=== PATIENT | male | born 1955 | race Caucasian/White ===

== ENCOUNTER → 2017-06-23 | Outpatient (CLI) | payer OTHER ==
[~2017-06-23] MED LIST: ADVA115A INH; FLUT50SP EACH NARE; HYDR7.5T76 PO; MOBI15TA PO; ZOSTINJ SQ
--- NOTE | 2017-06-26 11:13 | RSPPFT ---
DATE OF PROCEDURE: 06/23/17 COMMENTS: Spirometry with FVC of 3.6, FEV1 of 2.7, FEV1/FVC ratio at 75%. A non-significant response to acutely inhaled bronchodilator noted. Slow vital capacity is 90% of predicted. TLC is 87%. Diffusion capacity is 74% and normal when corrected for alveolar volume. IMPRESSION: 1. No evidence of airways obstruction. 2. No evidence of airways restriction. 3. Normal diffusion capacity. 4. Non-significant response to acutely inhaled bronchodilator.
== END ==
LOC: HRSP 09:03
PROVIDERS: ATTEND Internal Medicine Sleep Medicine
DX: R06.89 Other abnormalities of breathing (principal)
CPT/HCPCS: 94060; 94726; 94729

== ENCOUNTER 2018-03-28 06:54 | Inpatient (IN) ==
[2018-03-28] MEDS ORDERED: Dexamethasone PF Inj 10 MG/ML Vial ONE (07:39)
[2018-03-28] MEDS ORDERED: Sodium Chlor 0.9% Inj 250 ML ONE (07:40)
[2018-03-28] MEDS ORDERED: ceFAZolin 2 GM Premix Inj 2 GM/50 ML PIGGYBACK IV.SIG ONE (07:40)
[2018-03-28] MEDS ORDERED: Chlorhexidine Gluconate 2% 1 Pack (2 Cloths) TOPICAL ONE (07:42)
[2018-03-28] MEDS ORDERED: Metoprolol Tartrate 25 MG Tablet PO SCH (07:42)
[2018-03-28] MEDS ORDERED: Dexamethasone Inj 20 MG/5 ML Vial IV.PUSH SCH (07:50)
[2018-03-28] MEDS ORDERED: Sodium Chlor 0.9% Inj 500 ML IV.SIG SCH (08:00)
[2018-03-28] MEDS ORDERED: Chlorhexidine 4% Topical 120 APPLIC/120 ML Bottle TOPICAL SCH (08:00)
[2018-03-28] MEDS ORDERED: ceFAZolin 2 GM Premix Inj 2 GM/50 ML PIGGYBACK IV.SIG SCH (08:00)
[2018-03-28] MEDS ORDERED: Vancomycin Inj 1,000 MG in Sodium Chlor 0.9% Inj 250 ML IV.SIG SCH (08:00)
[2018-03-28] MEDS ORDERED: Lidocaine PF 1% Inj 5 ML Vial ONE (08:29)
[2018-03-28] MEDS ORDERED: Bupivacaine Liposomal PF 1.3% Inj 20 ML Vial ONE (08:30)
[2018-03-28] MEDS ORDERED: TRANEXAMIC ACID IV.SIG SCH ×2 (09:00→13:00)
[2018-03-28] MEDS ORDERED: SODIUM CHLOR 0.9% IV.SIG SCH ×2 (09:00→13:00)
[2018-03-28] MEDS ORDERED: Sodium Chlor 0.9% Inj 73.07 ML, Ropivacaine 0.5% PF Inj 24.63 ML, Ketorolac Inj 30 MG, ... P-ARTICULR SCH ×5 (09:00)
[2018-03-28] MEDS ORDERED: Bupivacaine/Dextrose 0.75% Inj 2 ML Ampul ONE (09:11)
[2018-03-28] MEDS ORDERED: Propofol Inj 500 MG/50 ML Vial ONE (09:12)
[2018-03-28] MEDS ORDERED: Phenylephrine/NS 1000 MCG/10ML Syringe IV.PUSH ONE (09:50)
[2018-03-28] MEDS ORDERED: Glycopyrrolate Inj 1 MG/5 ML Syringe IV.PUSH ONE (09:50)
[2018-03-28] MEDS ORDERED: Neostigmine Inj 5 MG/5 ML Syringe IV.PUSH ONE (09:50)
[2018-03-28] MEDS ORDERED: Succinylcholine Inj 100 MG/5 ML Syringe IV.PUSH ONE (09:50)
[2018-03-28] MEDS ORDERED: Lidocaine PF 1% Inj 5 ML Syringe OTHER ONE (09:50)
[2018-03-28] MEDS ORDERED: SALMETEROL INH PRN (11:59)
[2018-03-28] MEDS ORDERED: FLUTICASONE INH PRN (11:59)
[2018-03-28] MEDS ORDERED: Aluminum/Magnesium/Simethacone Susp 30 ML UDC PO PRN (12:00)
[2018-03-28] MEDS ORDERED: Bisacodyl 10 MG Supp RECTAL PRN (12:00)
[2018-03-28] MEDS ORDERED: Morphine Sulfate Inj 2 MG/ML Vial IV.PUSH PRN (12:00)
[2018-03-28] MEDS ORDERED: Zolpidem Tartrate 5 MG Tablet PO PRN (12:00)
[2018-03-28] MEDS ORDERED: Post-op Orders (for Pharmacy) OTHER STA (12:00)
--- NOTE | 2018-03-28 12:03 | P.OP ---
- Preoperative Diagnosis (1) Osteoarthritis of left knee - Postoperative Diagnosis (1) Osteoarthritis of left knee Date of procedure: 03/28/18 Procedure: Left total knee arthroplasty [facility] Surgeon: Elroy Moblye MD Avid Editor: QIANA Louie The surgical procedure was assisted by my Advanced Registered Nurse Practitioner. My REHAB THERAPIST presence was necessary throughout this case for the manipulation and positioning of the surgical extremity. My REHAB THERAPIST was assisting me throughout the duration of this procedure. The skill set of an Advance Registered Nurse Practitioner was medically necessary to complete this procedure. During the surgical case, the operating room surgical technologist was working at the back table and the Advance Registered Nurse Practitioner was directly assisting me. Operation and Findings: IMPLANTS: DePuy Attune: Patella: size 35. Femur, posterior stabilized size 7. Tibia, rotating platform size 7. Tibial insert, rotating platform, posterior stabilized size 5 mm thickness. ESTIMATED BLOOD LOSS: 200 cc TOURNIQUET TIME: 51 minutes at 250 mmHg pressure. JUSTIFICATION FOR PROCEDURE: The patient has end-stage osteoarthritis to the knee. There is an attached conservative measures pathway form in the chart that describes the nonoperative measures that were undertaken prior to consideration of surgical management. The patient understood the risks and benefits of surgical management. See my office notes for further details PROCEDURE: The patient was brought back to the operative theatre. Adequate anesthesia was obtained. The patient received intravenous vancomycin and Ancef. The lower extremity was prepped and draped in the usual sterile fashion.The leg was exsanguinated, the tourniquet was raised. A standard anterior incision was performed followed by medial parapatellar arthrotomy was performed. End-stage arthritis was identified. Osteotomy of the patella was performed. We drilled holes for the patella. We trialed the patella component. We placed an intramedullary guide into the distal femur. We ultimately resected 13 mm off of the distal femur in 5 degrees of valgus. The remnants of the ACL and PCL were resected. Osteotomy of the proximal tibia was performed, resecting 7 mm off of the medial side. This was done with 3 degrees of posterior slope using an extramedullary guide. The distal end of the guide was placed in the mid aspect of the ankle. The femur was sized, and four chamfer cuts were completed in 3 of external rotation. We then cut the central box in the distal femur to replace the PCL. We resected the remnants of the menisci and removed osteophytes off of the femur and tibia. We then trialed the knee. We punched the tibia for the keel, and then used standard technique to cement in components. Excess cement was removed. We trialed the knee again and the final polyethylene thickness was chosen to provide extension to 0 degrees, and flexion of 140 degrees to gravity. The ligaments were appropriately balanced. Lateral release was necessary to obtain excellent patellofemoral tracking. The tourniquet was released and adequate hemostasis was obtained. An intra- articular injection of a ropivacaine cocktail was injected. The posterior knee was inspected for excess cement, which was removed. The final polyethylene was put into position after thorough irrigation. We then closed deep fascia with a #2 Stratafix followed by skin with 2-0 Vicryl followed by Dermabond dressing. Postop plan is to weight-bear as tolerated. DVT prophylaxis will be performed with SCDs, BRIANNE hose, early mobilization, and aspirin.
[2018-03-28] MEDS ORDERED: fentaNYL Citrate Inj 100 MCG/2 ML Ampul ONE (12:42)
--- NOTE | 2018-03-28 13:26 | XR ---
EXAM DATE: 03/28/2018 1:22 PM EDT AGE/SEX: 62 years / Male INDICATIONS: Post-op left total knee arthroplasty. CLINICAL DATA: This is the patient's initial encounter. Patient reports that signs and symptoms have been present for 1 day and indicates a pain score of 0/10. MEDICAL/SURGICAL HISTORY: None. Fusion, lumbar. COMPARISON: No prior exams available for comparison. FINDINGS: Multiple views of the knee were obtained and demonstrate that the patient is status post total knee a rthroplasty. The femoral and tibial components are intact and in normal alignment. There is anterior soft tissue swelling and gas. CONCLUSION: Expected postoperative changes status post arthroplasty. Electronically signed by: Donny Das MD 03/28/2018 1:25 PM EDT
--- NOTE | 2018-03-28 16:19 | P.DCO ---
- Physical Therapy Physical Therapy: Gait training, Transfer training, bed to chair Knee: Total knee Left Lower Extremity Weight Bearing: Weight bearing as tolerated Left Lower Extremity Range of Motion: Active ROM - Nursing Dressing changes: Do not change dressing Additional instructions: First dressing change in the office - Certification Need for Home Health services: I have seen patient Graham Culver on 03/28/18. My clinical findings support the need for the requested home health care services because: Need for Home Health Services: Limited ability to care for self, High risk of falls Homebound Certification: I certify that my clinical findings support that this patient is homebound because: Homebound Certification: Post-op weakness, Unsteady gait/balance
[2018-03-28] MEDS: ceFAZolin 1 GM Premix Inj 1 GM/50 ML FROZ.PIGGY IV.SIG SCH (18:18)
[2018-03-28] MEDS: Sod Chloride 0.9% Inj 1,000 ML IV.CONT SCH (18:19)
[2018-03-28] MEDS: Senna/Docusate Sodium 8.6/50 MG Tablet PO SCH (21:05)
[2018-03-28] MEDS: Multivitamin/Minerals Therapeutic Tablet PO SCH (21:06)
[2018-03-29] MEDS: ceFAZolin 1 GM Premix Inj 1 GM/50 ML FROZ.PIGGY IV.SIG SCH ×2 (00:02→05:41)
[2018-03-29] MEDS: Sod Chloride 0.9% Inj 1,000 ML IV.CONT SCH (05:43)
[2018-03-29 06:54] LABS: Hematocrit 36.1 % (39.0-51.0); Hemoglobin 12.4 gm/dL (13.0-17.0)
--- NOTE | 2018-03-29 07:32 | P.PNOP ---
Subjective Interval history: The patient is resting comfortably in bed in no acute distress. The patient has been ambulatory. The patient feels as though he can go home today with home health. Physical Exam Vital signs: Vital Signs 03/28/18 08:00 03/28/18 08:22 03/28/18 12:34 Temperature 97.8 F 97.6 F Pulse Rate 59 L 53 L 102 H Respiratory Rate 17 20 Blood Pressure 126/63 132/64 Pulse Oximetry 96 98 97 03/28/18 13:30 03/28/18 14:30 03/28/18 15:30 Temperature Pulse Rate 100 H 84 89 Respiratory Rate 15 20 17 Blood Pressure 134/89 135/70 131/69 Pulse Oximetry 97 94 L 95 03/28/18 20:00 03/29/18 00:00 03/29/18 04:00 Temperature 98.5 F 98.4 F 97.9 F Pulse Rate 85 67 111 H Respiratory Rate 18 16 16 Blood Pressure 111/68 103/57 L 106/57 L Pulse Oximetry 95 97 96 Intake & Output 03/28/18 03/29/18 03/29/18 18:59 06:59 18:59 Intake Total 1701.08 / 1701.08 410 / 410 Output Total 1600 / 1600 200 / 200 Balance 101.08 / 101.08 210 / 210 Weight 110.8 kg 113.4 kg Intake: IV 461.08 / 461.08 50 / 50 Cyklokapron Inj 1,108 MG In NS 111.08 / 111.08 Inj 100 ML @ 200 mls/hr IV.SIG MICROBIOLOGICAL LAB TECHNICIAN RHONA Rx#:[id number] Vancomycin Inj 1,000 MG In NS 250 / 250 Inj 250 ML @ 250 mls/hr IV.SIG MICROBIOLOGICAL LAB TECHNICIAN RHONA Rx#:[id number] Ancef 1 GM Premix Inj 1 gm In 50 / 50 50 / 50 50 ml @ 100 mls/hr IV.SIG Q6H RHONA Rx#:[id number] Ancef 2 GM Premix Inj 2 gm In 50 / 50 50 ml @ 100 mls/hr IV.SIG MICROBIOLOGICAL LAB TECHNICIAN RHONA Rx#:[id number] Oral 240 / 240 360 / 360 Anesthesia Amount 1000 / 1000 Output: Urine 400 / 400 200 / 200 Estimated Blood Loss 200 / 200 Urine Amount (Catheter) 1000 / 1000 Straight 1000 / 1000 Other: Date of Last Bowel Movement 03/27/18 03/27/18 # Bowel Movements 0 Weight On Admission 110.8 kg Narrative: The patient's dressing is clean, dry, and intact. EHL/TA/G are intact. 2+ pedal pulse. The patient's calf is soft and nontender. Sensation is intact to light touch distally. - Urinary Catheter Management Straight Cath placed during this visit: yes, but has since been removed by the nurse Reason for continuing: Continue criteria not met Insertion date: 03/28/18 Insertion time: 13:00 Removal date: 03/28/18 Removal time: 13:20 Results - Labs CBC & Chem 7: 03/29/18 05:26 Laboratory Results - last 24 hr 03/28/18 03/29/18 07:56 05:26 Hgb 12.4 L Hct 36.1 L Blood Type A Positive Blood Type Recheck Required Antibody Screen Negative - Imaging Impressions Knee X-Ray 03/28/18 12:00 CONCLUSION: Expected postoperative changes status post arthroplasty. - Procedures Left total knee arthroplasty Assessment and Plan - Problem List (1) Status post total knee replacement, left Code(s): Z96.652 - Presence of left artificial knee joint Status: Acute (2) Osteoarthritis of left knee Code(s): M17.12 - Unilateral primary osteoarthritis, left knee Status: Acute - Assessment and Plan POD #1: Left total knee arthroplasty 1. Weightbearing as tolerated on left lower extremity. 2. Aspirin 81 mg twice a day for DVT prophylaxis. 3. Ice as needed for swelling. 4. Stable per ortho for discharge to home health following class today. 5. The patient will follow up with Dr. Mobley and/or QIANA Fournier as previously scheduled.
[2018-03-29] MEDS ORDERED: Dexamethasone Inj 20 MG/5 ML Vial IV.PUSH ONE (08:00)
[2018-03-29] MEDS: Multivitamin/Minerals Therapeutic Tablet PO SCH (09:16)
[2018-03-29] MEDS: Senna/Docusate Sodium 8.6/50 MG Tablet PO SCH (09:17)
[2018-03-29 10:18] VITALS: BP 106/55; PULSE 74; TEMP 98; O2SAT 94
[2018-03-29 13:48] VITALS: RESP 18
--- NOTE | 2018-03-30 16:56 | P.DS ---
Date of admission: 03/28/18 06:54 Primary care physician: Pari Sorenson MD Attending physician on discharge: Elroy Mobley Anticipated date of discharge: 03/29/18 Brief History from admission: The patient was admitted to the hospital for severe OA of the left knee to have a left TKA. DS: Diagnosis - Discharge Diagnosis (1) Status post total knee replacement, left Status: Acute (2) Osteoarthritis of left knee Status: Acute DS: Summary Hospital Course: The patient was admitted to the hospital for severe osteoarthritis of the [left ] knee to have a [left] total knee arthroplasty. The patient's surgery went well with no complication. The patient is on a [regular] diet. The patient's DVT prophylaxis includes use of [ASA 81 mg BID]. The patient is weightbearing as tolerated. The patient was discharged [home with home health] and will follow up in the office with Dr. Mobley and/or QIANA Fournier as previously scheduled. - Time Spent with Patient Total time spent providing and/or coordinating discharge services: Greater than 30 minutes - Quality: VTE Deep Vein Thrombosis/Pulmonary Embolism Present on Admission: No Exam Vital signs: Intake & Output 03/29/18 03/30/18 03/30/18 18:59 06:59 18:59 Other: Date of Last Bowel Movement 03/28/18 Narrative: The patient's dressing is clean, dry, and intact. EHL/TA/G are intact. 2+ pedal pulse. The patient's calf is soft and nontender. Sensation is intact to light touch distally. Results Procedures completed during hospitalization: Left total knee arthroplasty - Impressions ITS Impressions Knee X-Ray 03/28/18 12:00 CONCLUSION: Expected postoperative changes status post arthroplasty. Discharge Plan - Discharge Disposition Patient Disposition: Disch W/Home Health Service - Discharge Condition Condition: Stable - Discharge Order Discharge Orders: Discharge Order (Routine); Ordered 03/28/18 Ordered By: Bulmaro Alvarez - Discharge Details Anticipated Discharge Date: 03/29/18 - Physicians Team Primary Care Provider: Pari Sorenson Attending Provider: Elroy Mobley - Rxs /Orders / Referrals /Forms Prescriptions: Continue donepezil [Aricept] 10 mg Tablet 5 mg PO DAILY fluticasone [Allergy Relief (fluticasone)] 50 mcg/actuation [place],Suspension 1 spray INTRANASAL BID fluticasone-salmeterol 45-21 mcg/actuation Hfa Aerosol Inhaler 1 puff INHALATION Q12H PRN (Reason: Shortness Of Breath) multivit with min-folic acid [Men's Multivitamin Gummies] 200 mcg Tablet, Chewable 1 dose PO DAILY Ambulatory Orders / Order Sets / DME: Adjustable Commode 3-in-1 (1 each) (Routine) Location: Determined by Patient Ordered By: Bulmaro Alvarez CPM - Continuous Passive Motion Machine (1 each) (Routine) Location: Determined by Patient Ordered By: Bulmaro Alvarez Walker With Front Wheels (1 each) (Routine) Location: Determined by Patient Ordered By: Bulmaro Alvarez Referrals: Elroy Mobley MD [Physician] - See Instructions (F/U in the office as previously scheduled with Dr. Mobley or Steve Alvarez, TRAFFIC ENGINEERING TECHNICIAN) Pari Sorenson MD [Primary Care Provider] - See Instructions - Discharge Instructions Patient Printed Instructions: Narcotic Pain Management (DC), Fall Prevention ( DC), Knee Replacement (DC), Deep Vein Thrombosis Prevention (DC) Additional Instructions: TAKE MEDS PRESCRIBED ATTEND ALL FOLLOW UP APPOINTMENTS OR CALL OFFICE TO SCHEDULE - Post Discharge Care Plan Care Plan Goals: Discharge Care Plan Goals for Total Knee Replacement You have undergone knee replacement surgery. Your doctor replaced your painful joint with an artificial joint to relieve pain and restore movement. Here are some goals to help you heal well. Directions to Meet your Goals: 1. Activity & Exercises: * Take pain medicine as directed by your doctor. * Sit in chairs with arms. The arms make it easier for you to stand up or sit down. * Dont sit for more than 30 to 45 minutes at one time. * Nap if you are tired, but dont stay in bed all day. * Sleep with a pillow under your ankle, not your knee. Be sure to change the position of your leg during the night. * Wear the support stockings you were given in the hospital as directed by your surgeon. 2. Prevent Falls/Injury: The morejon to successful recovery is movement with walking and exercising your knee as directed by your doctor. * Arrange your household to keep the items you need handy. Keep everything else out of the way. * Remove items that may cause you to fall, such as throw rugs and electrical cords. * Use nonslip bath mats, grab bars, an elevated toilet seat, and a shower chair in your bathroom * Sit on a shower stool or chair when you shower to keep from falling. * Until your balance, flexibility, and strength improve, use a cane, crutches, a walker, handrails, or someone to help you. * Keep your hands free by using a backpack, pelon pack, apron, or pockets to carry things * Walk up and down stairs with support. Try one step at a time. Use the railing if possible. * Dont drive until your doctor says its OK. * Dont drive while you are taking opioid pain medicine. 3. Precautions: * Prevent infection. Any infection will need to be treated immediately. Call your doctor right away if you think you might have an infection. * Tell your dentist that you have an artificial joint and take antibiotics as prescribed before any dental work. * Tell all your healthcare providers about your artificial joint before any medical procedure. * Maintain a healthy weight. Get help to lose any extra pounds. Added body weight puts stress on the knee. * Your medications may include blood-thinning medicine to prevent blood clots or antibiotics to prevent infection-prevent any falls or cuts 4. Incision Care: * Prevent infection by washing your hands often. If an infection occurs, it will need to be treated right away. * Call your doctor right away if you think you may have an infection. Symptoms include a fever or an incision that leaks white, green, or yellow fluid. * Don't soak your incision in water until your doctor says its OK. This means no hot tubs, bathtubs, or swimming pools. * Follow your doctor's instructions for changing the dressing. * Dont rub the incision, or apply creams or lotions to it. * If you notice any redness or drainage around the bandage site, contact your surgeon's office immediately. 5. Follow-Up: Do Not miss your follow-up appointment. Keep up with all your appointments and yearly check ups When to call your doctor: Call your doctor right away if you have: Fever of 100.4F (38C) or higher, or as directed by your doctor Shaking chills Stiffness, or inability to move the knee Increased swelling in your leg Increased redness, tenderness, or swelling in or around the knee incision Drainage from the knee incision Increased knee pain Call 911: Call 911 right away if you have: Chest pain Shortness of breath Any pain or tenderness in your calf
== END 2018-03-29 14:40 | disposition home health service (06) ==
LOC: HSDI 06:54 → N06 17:00
PROVIDERS: ADMIT Orthopaedic Surgery; ATTEND Orthopaedic Surgery